=== PATIENT | male | born 1975 | race African-American/Black ===

== ENCOUNTER 2023-12-05 11:41 | Emergency (ER) | payer SELFPAY ==
[~2023-12-05] VITALS: Ht 177.8 cm; Wt 81.6 kg
[2023-12-05 13:40] VITALS: BP 131/81; O2SAT 98
== END 2023-12-05 13:05 | disposition home or self-care (01) ==
LOC: ER 11:41
DX: M25.532 Pain in left wrist (principal); M25.531 Pain in right wrist; Z60.2 Problems related to living alone
CPT/HCPCS: A4606; A4663